=== PATIENT | female | born 1980 | race Asian ===

== ENCOUNTER 2016-09-06 08:24 | Inpatient (IN) | payer OTHER ==
[~2016-09-06] VITALS: Ht 157.5 cm; Wt 69.4 kg
[2016-09-06] MEDS ORDERED: Lactated Ringer's 1,000 ML IV PRN (08:43)
[2016-09-06] MEDS ORDERED: Methylergonovine 0.2 mg/mL Inj IM PRN ×2 (08:45→11:05)
[2016-09-06] MEDS ORDERED: Sodium Chloride LOK Flush 10 mL Syringe IVFLUSH PRN (08:45)
[2016-09-06] MEDS ORDERED: Carboprost 250 mCg/mL Inj IM PRN ×2 (08:45→11:05)
[2016-09-06] MEDS ORDERED: Oxytocin 30 Units/500 mL LR 30 UNITS in IV Premix 1 EACH IV PRN ×2 (08:45→11:05)
[2016-09-06] MEDS ORDERED: Oxytocin 10 Unit/mL Inj IM PRN ×2 (08:45→11:05)
[2016-09-06] MEDS ORDERED: Hemorrhage Kit, Post Partum XX ONE ×2 (08:45→11:05)
--- NOTE | 2016-09-06 09:25 | PCM.HPOB ---
Subjective Date of Service: Sep 06, 2016 Referring Provider: Admitting Physician: Ced Lee DO Primary Care Physician: Ced Lee DO Attending Physician: Ced Lee DO Chief Complaint Active labor History of Present History of Present Illness Addie is a 36 yo mom. GBS negative, who presents to [facility] in active labor; upon arrival positive test for amniotic fluid and cervical dilation to 6- cm with 80% effacement. She began experiencing contractions at about 2 am this morning. She desires a without interventions, does not desire pain medications. No complications during care; she came to [facility] with id for care in her third trimester. She had previously received her care for this through a midwifery practice. No significant past medical history , no significant gynecological history. OB History: (5), Para (3), Term (3), (1) Obstetrical Complications: None Past Medical History Obstetrical History: Baby 1: Born December 2009, baby girl, , no complications at 39.5 weeks gestation born at 6 lbs 3 oz. 5 hours of labor. Baby 2: Born January 2012, baby boy, , no complications at 40 weeks gestation born at 6 lbs. 8 oz. 12 hours of labor. Baby 3: Medical History: Cleft palate Social History: Good social support, Thai present. Hx Tobacco Use: No Smoking Status: Never Smoker Hx Alcohol Use: No Hx Substance Use: No Past Family History Family History Adopted, no known family history Genetic Screening/Counseling Genetic Screening/Counseling: Unknown Review of Systems Constitutional: Y: Fever, Pain Eyes: Denies: Blurred Vision ENT: Denies: Nasal Congestion Cardiovascular: Denies: Chest Pain, Palpitations Respiratory: Denies: Cough Gastrointestinal: Reports: Abdominal Pain (Contractions) Genitourinary: Denies: Hematuria Skin/Breasts: Denies: Discharge Skin: Denies: Rash Neurological: Denies: Confusion, Dizziness Psychologic: Denies: Anxious Endocrine: Denies: Change in Appitite Hematologic: Denies: Abnormal bleeding Medications Home medications 1.) vitamin Allergy Coded Allergies: No Known Allergies (Unverified Allergy, Unknown, 11/03/14) Exam Vital Signs BP: 92/54 Pulse: 64 T: 36.6 deg C Constitutional: Well-developed HEENT: PERRLA, EOMI Lungs: Clear to Auscultation Heart: Regular Rate/Rhythm, Normal S1, Normal S2 Abdomen: Gravid Extremities: Pulses Palpable x4, Warm, No Edema Neurological/Psychiatric: Alert, Oriented X3, Cooperative, No Acute Distress Neuro: Grossly Neurologically Intact Gynecologic: Normal: Bladder, Cervix, External Genitalia, Urethral Meatus, Uterus, Vagina/Pelvic Support Labs/Diagnostics Maternal Blood Type: A Hx Rho(D) Immune Globulin: No Antibody Screen: Negative Group B Strep Results: Negative Previous with GBS: No Rubella: Immune Additional Information Immune to varicella, rubella. Hep B surface antigen at testing was non- reactive. OB Intrapartum Assessment/Plan Assessment 36-yo GBS negative mom in active labor. Pain Evaluation: Adequate Pain Control Intrapartum plan Expectant delivery Ced Lee DO Sep 06, 2016 09:25
[2016-09-06] MEDS: Lactated Ringer's 1,000 ML IV SCH ×2 (11:04→19:04)
[2016-09-06] MEDS ORDERED: LANOlin HPA 7 Gm Ointment TOPICAL PRN (11:05)
[2016-09-06] MEDS ORDERED: Acetaminophen IV 1,000 MG in IV Premix 1 EACH IV PRN (11:05)
[2016-09-06] MEDS ORDERED: Witch Hazel-Glycerin Pads TOPICAL PRN (11:05)
[2016-09-06] MEDS ORDERED: Benzocaine (Dermoplast) 20% 60 Gm Spray TOPICAL PRN (11:05)
--- NOTE | 2016-09-06 11:24 | PCM.OBVAG ---
Vaginal Delivery Date of Service Sep 06, 2016 Pre Operative Diagnosis Pre Operative Diagnosis Term labor Post Operative Diagnosis Post Operative Diagnosis Spontaneous vaginal delivery Procedure Procedure: This is a 36-year-old female who upon my checking her in her room, was fully dilated; note that in the triage room she was at only 6 cm. She progressed to stage II in about 50 minutes. Baby presented right OA position; left shoulder was delivered first. Membranes were intact when her head began to deliver; gentle stroking with my finger ruptured membranes, the baby was delivered over a sterile blue towel field. Delayed cord clamping, then clamped x2 and ligated. Mom gave to a baby girl at 1040 a.m., weighing 7 lbs., 0 oz.and with Apgars of 9 and 9. Length 20.25 inches, head circumference 33 cm. The placenta was delivered within 5 minutes and was intact. Fundal massage was performed, minimal bleeding noted. EBL 100 mL. There were no vaginal, perineal or rectal lacerations. All sponge counts were correct x2, there were no complications from the delivery. Obstetical Procedure: Normal Spontaneous Vaginal Delivery Indication for Procedure Induction: Active labor Findings Obstetrical Findings: [place] (Female), 1 minute (9), 5 minutes (9) , Placenta (Intact/Normal) Analgesia/Medications Procedural Analgesia: No analgesia Blood Loss & Administration Estimated Blood Loss: 100 Blood Admin during procedure: No Post Procedure Plan Post Procedure Plan Routine care. Post delivery Condition: Mom stable copies to: Ced Lee David M DO Sep 06, 2016 11:24
[2016-09-06] MEDS ORDERED: PREN1TAB87 PO (11:48)
[2016-09-06] MEDS: Ascorbic Acid 500 mg Tablet PO SCH (18:02)
[2016-09-07] MEDS: Lactated Ringer's 1,000 ML IV SCH (03:04)
[2016-09-07 06:27] LABS: Mean Corpuscular Hemoglobin 31.5 pg (27.0-35.0); Mean Corpuscular Volume 93.2 fL (81-100)
[2016-09-07] MEDS: Ascorbic Acid 500 mg Tablet PO SCH (09:30)
[2016-09-07] MEDS ORDERED: FERR-74 PO (09:38)
[2016-09-07] MEDS ORDERED: Ascorbic Acid PO (09:38)
[2016-09-07] MEDS ORDERED: DOCU-41 PO (09:38)
[2016-09-07] MEDS ORDERED: Lanolin TOPICAL (09:38)
[2016-09-07] MEDS ORDERED: IBUP-1827 PO (09:38)
--- NOTE | 2016-09-07 09:40 | PCM.DIOB ---
Obstetrical Disch Instruction Date of Service: Sep 07, 2016 Dates of Hospitalization Date of Hospital Admission Sep 06, 2016 at 08:44 Providers Admitting Physician: Ced Lee DO Primary Care Physician: Ced Lee DO Attending Physician: Ced Lee DO Discharge Diagnosis Discharge Diagnosis Term labor, spontaneous vaginal delivery Problems: Diet Discharge Diet: No restrictions Activity Discharge Activity-General: Pelvic Rest for 6 weeks, Be up and about, Balance rest and activity, Activity as pain allows, Activity as energy allows, No lifting >15 pounds for 2 weeks Dressing and Incisional Care Hygiene: May shower Additional Instructions Discharge Instructions 1. Follow up in [address] Lee in [place]. You will need to firm this appointment. Feel free to contact Dr. Lee's office if any OB questions or concerns, including vomiting, fever, shortness of breath, racing heart rate, dizziness or increasing abdominal pain (or constipation for 2 days or more). 2. Nothing in the vagina for 6-8 weeks. control can be discussed during the appointment in 6 weeks. Follow Up Plan Follow-up Provider (F9): Ced Lee DO Follow-up appointment: Weeks (6) Call your provider for: Fever or Chills, Shortness of breath, Heavy vaginal bleeding, Excessive constipation, Vaginal discomfort, Red painful breasts Ced Lee DO Sep 07, 2016 09:40
[2016-09-07 12:34] VITALS: BP 107/69; PULSE 71; RESP 20
--- NOTE | 2016-09-10 19:04 | PCM.DC.OB ---
Obstetrical Discharge Summary Date of Service Sep 07, 2016 Date of hospital admission Sep 06, 2016 at 08:44 Date of Discharge: Sep 07, 2016 Providers Admitting Physician: Ced Lee DO Primary Care Physician: Ced Lee DO Attending Physician: Ced Lee DO Brief History and Physical: VS date of discharge: BP 104/62, Pulse 96, RR 16, T 36.7 deg Talia Real is a 36 yo woman, GBS negative, who presented to [facility] in active labor at 38.6 weeks gestation; upon arrival, positive test for amniotic fluid and cervical dilation to 6-cm with 80% effacement. She began experiencing contractions at about 2 am this morning. She desires a without interventions, does not desire pain medications. No complications during care; she came to [facility] with me for care in her third trimester. She had previously received her care for this through a midwifery practice. No significant past medical history , no significant gynecological history. Hospital Course: Uncomplicated spontaneous vaginal delivery without medication intervention, stage II of approx. 50 minutes. Membranes were intact until delivery of baby's head, then ruptured and baby was placed on mother's abdomen; delayed cord clamping 2 minutes. Required very little pain medication post-, discharged to home with baby. ([Lanolin]) 2 APPLIC/GM OINT 1 APPLIC TOPICAL PRN PRN PRN apply to nipples Prescribed by: CED LEE DO ([Ascorbic Acid]) 500 MG TABLET 500 MG PO BIDWM Prescribed by: CED LEE DO Docusate Sodium (Colace) 100 Mg Capsule 100 MG PO DAILY Prescribed by: CED LEE DO Ferrous Sulfate (Feosol) 325 Mg Tablet 325 MG PO BIDWM Prescribed by: CED LEE DO Ibuprofen (Ibuprofen) 600 Mg Tablet 600 MG PO Q6H PRN PRN For Mild Pain Prescribed by: CED LEE DO Vit W-Ca,Fe,FA(<1 mg) ( Vitamins) 1 Each Tablet 1 EACH PO DAILY (Reported) Discharge Medications: vitamin Discharge Diet: No restrictions Discharge Activity-General: Pelvic Rest for 6 weeks copies to: Ced Lee David M DO Sep 07, 2016 09:43
== END 2016-09-07 13:00 | disposition home or self-care (01) | DRG 560 ==
LOC: FBCO 08:24 → FBC 08:44
PROVIDERS: ADMIT Family Medicine; ATTEND Family Medicine
PROC: 10E0XZZ Delivery of Products of Conception, External Approach (ICD-10-PCS; principal; 2016-09-06)
DX: O80 Encounter for full-term uncomplicated delivery (principal); Z37.0 Single live birth; Z3A.38 38 weeks gestation of pregnancy